=== PATIENT | male | born 1965 ===

== ENCOUNTER 2017-12-17 13:52 | Inpatient (IN) ==
[2017-12-17] MEDS ORDERED: VANCOMYCIN INJ 1,000 MG in SODIUM CHLORIDE 0.9% 250 ML IV STA ×2 (14:14→14:34)
[2017-12-17] MEDS ORDERED: VANCOMYCIN 1,000 MG VIAL ONE (14:35)
[2017-12-17 14:46] LABS: Basophils % 0.3 % (0.0-0.8); Eosinophils # 0.1 10*3/uL (0.0-0.87); Eosinophils % 0.4 % (0.00-10.9); Hematocrit 38.7 VOL% (42.0-52.0); Hemoglobin 12.8 GM/DL (14.0-18.0); Immature Granulocytes % 0.3 %; Immature Granulocytes Absolute 0.04 #; Lymphocytes # 0.9 10*3/uL (1.4-4.0); Lymphocytes % 7.7 % (21.2-54.2); Mean Corpuscular HGB Conc 33.1 GM/DL (32-36); Mean Corpuscular Hemoglobin 28 PG (27-34); Mean Corpuscular Volume 84.5 FL (87-102); Mean Platelet Volume 10.2 FL (9.6-12.0); Monocytes # 1.1 10*3/uL (0.11-0.8); Monocytes % 9.4 % (1.7-12.7); Neutrophils # 9.6 10*3/uL (1.4-7.4); Neutrophils % 81.9 % (38.7-73.9); Platelet Count 226 T/CUMM (130-400); Red Blood Count 4.58 MC/CUMM (3.8-5.5); White Blood Count 11.8 T/CUMM (4-12)
[2017-12-17 14:50] LABS: Apearance,Urine CLEAR (Clear); Bacteria,Urine Occasional /HPF (Few); Bilirubin,Urine Negative (Negative); Blood, Urine Small mg/dL (Negative); Glucose,Urine (UA) 50 mg/dL (Negative); Hyaline Casts,Urine 2 /LPF (0-3); Ketones,Urine Negative (Negative); Mucus,Urine Occasional /LPF (Occasional); Nitrite,Urine Negative (Negative); Protein,Urine 100 MG/DL; RBC,Urine <1 /HPF (0-4); Urine Color Yellow (Yellow); Urine Specific Gravity 1.008 (1.001-1.035); Urine Urobilinogen < 2.0 EU/DL (0.2-1.0); WBC,Urine <1 /HPF (0-6)
[2017-12-17 14:59] LABS: Total Cells Counted 0
[2017-12-17 15:00] LABS: Bilirubin,Total 0.5 MG/DL (0.2-1.0); Calcium 7.6 MG/DL (8.5-10.1); Lactic Acid 0.7 MMOL/L (0.4-2.0); Osmolality,Calculated 281.1 MOS/KG (273-304); Potassium 4.3 MMOL/L (3.5-5.1); Total Protein 7.5 G/DL (6.4-8.3)
[2017-12-17 15:58] LABS: Sedimentation Rate-Westergren 61 MM/HR (0-15)
[2017-12-17] MEDS ORDERED: GLUCAGON 1 MG VIAL IM PRN ×2 (16:11)
[2017-12-17] MEDS ORDERED: DEXTROSE 50% 25 GM/50 ML VIAL IV PRN ×2 (16:11)
[2017-12-17] MEDS ORDERED: ONDANSETRON 4 MG/2 ML VIAL IV PRN (16:11)
[2017-12-17] MEDS: INSULIN REGULAR 100 UNIT/ML SUBCUT SCH ×2 (18:13→21:32)
[2017-12-17] MEDS: IBUPROFEN 400 MG TABLET PO PRN (21:32)
[2017-12-18 05:23] LABS: Basophils % 0.2 % (0.0-0.8); Eosinophils # 0.2 10*3/uL (0.0-0.87); Eosinophils % 1.8 % (0.00-10.9); Hematocrit 37.9 VOL% (42.0-52.0); Hemoglobin 12.3 GM/DL (14.0-18.0); Immature Granulocytes % 0.3 %; Immature Granulocytes Absolute 0.03 #; Lymphocytes # 1.5 10*3/uL (1.4-4.0); Mean Corpuscular HGB Conc 32.5 GM/DL (32-36); Mean Corpuscular Hemoglobin 28 PG (27-34); Mean Corpuscular Volume 86.1 FL (87-102); Mean Platelet Volume 10.5 FL (9.6-12.0); Monocytes # 1.3 10*3/uL (0.11-0.8); Monocytes % 14.2 % (1.7-12.7); Neutrophils % 66.5 % (38.7-73.9); Platelet Count 220 T/CUMM (130-400); Red Cell Distribution Width 14.2 % (9.3-17.3); White Blood Count 9.1 T/CUMM (4-12)
[2017-12-18 06:01] LABS: Albumin 2.7 G/DL (3.4-5.0); Bilirubin,Total 1.1 MG/DL (0.2-1.0); Calcium 7.5 MG/DL (8.5-10.1); Osmolality,Calculated 287.3 MOS/KG (273-304); Potassium 4.4 MMOL/L (3.5-5.1)
[2017-12-18] MEDS: INSULIN REGULAR 100 UNIT/ML SUBCUT SCH ×4 (07:18→20:38)
[2017-12-18] MEDS: POTASSIUM CHLORIDE 10 MEQ TABLET PO SCH (08:50)
[2017-12-18] MEDS: FUROSEMIDE 40 MG TABLET PO SCH (08:50)
[2017-12-18] MEDS: ASPIRIN EC 81 MG TABLET PO SCH (08:50)
[2017-12-18] MEDS: SIMVASTATIN 20 MG TABLET PO SCH (08:51)
[2017-12-18] MEDS: amLODIPine 10 MG TABLET PO SCH (08:52)
[2017-12-18] MEDS: LISINOPRIL 20 MG TABLET PO SCH (08:52)
[2017-12-18] MEDS: PANTOPRAZOLE 40 MG TABLET PO SCH (08:52)
[2017-12-18] MEDS: VANCOMYCIN INJ 2,000 MG in SODIUM CHLORIDE 0.9% 500 ML IV SCH (09:00)
[2017-12-18] MEDS ORDERED: BUPIVACAINE 0.5% 50 ML VIAL ONE (09:41)
[2017-12-18] MEDS ORDERED: PROPOFOL 200 MG/20 ML VIAL IV ONE (11:02)
[2017-12-18] MEDS ORDERED: SEVOFLURANE 1 UNIT/15 MINUTE INH ONE (11:02)
[2017-12-18] MEDS ORDERED: ePHEDrine 50 MG/ML AMP ONE (11:03)
[2017-12-18] MEDS ORDERED: fentaNYL 100 MCG/2 ML VIAL ONE (11:03)
[2017-12-18] MEDS ORDERED: MIDAZOLAM 2 MG/2 ML VIAL ONE (11:03)
[2017-12-18] MEDS ORDERED: SODIUM CHLORIDE 0.9% 100 ML IV ONE (11:03)
[2017-12-18] MEDS: LEVOFLOXACIN INJ 750 MG in PREMIX 1 EACH IV SCH (14:04)
[2017-12-18] MEDS: IBUPROFEN 400 MG TABLET PO PRN (14:10)
[2017-12-18] MEDS: ACETAMINOPHEN 325 MG TABLET PO PRN (15:48)
[2017-12-19] MEDS: VANCOMYCIN INJ 2,000 MG in SODIUM CHLORIDE 0.9% 500 ML IV SCH ×2 (03:58→21:15)
[2017-12-19] MEDS: INSULIN REGULAR 100 UNIT/ML SUBCUT SCH ×4 (07:33→21:12)
[2017-12-19] MEDS: FUROSEMIDE 40 MG TABLET PO SCH (08:29)
[2017-12-19] MEDS: LISINOPRIL 20 MG TABLET PO SCH (08:29)
[2017-12-19] MEDS: amLODIPine 10 MG TABLET PO SCH (08:29)
[2017-12-19] MEDS: ACETAMINOPHEN 325 MG TABLET PO PRN (08:29)
[2017-12-19] MEDS: PANTOPRAZOLE 40 MG TABLET PO SCH (08:29)
[2017-12-19] MEDS: SIMVASTATIN 20 MG TABLET PO SCH (08:29)
[2017-12-19] MEDS: ASPIRIN EC 81 MG TABLET PO SCH (08:29)
[2017-12-19] MEDS: POTASSIUM CHLORIDE 10 MEQ TABLET PO SCH (08:29)
[2017-12-19 09:45] LABS: Basophils % 0.3 % (0.0-0.8); Eosinophils % 0.2 % (0.00-10.9); Hematocrit 36.8 VOL% (42.0-52.0); Hemoglobin 12.2 GM/DL (14.0-18.0); Immature Granulocytes % 0.4 %; Immature Granulocytes Absolute 0.04 #; Lymphocytes # 0.8 10*3/uL (1.4-4.0); Lymphocytes % 7.7 % (21.2-54.2); Mean Corpuscular HGB Conc 33.2 GM/DL (32-36); Mean Corpuscular Hemoglobin 28 PG (27-34); Mean Corpuscular Volume 84.6 FL (87-102); Mean Platelet Volume 10.3 FL (9.6-12.0); Monocytes # 0.7 10*3/uL (0.11-0.8); Monocytes % 7.2 % (1.7-12.7); Neutrophils # 8.7 10*3/uL (1.4-7.4); Neutrophils % 84.2 % (38.7-73.9); Platelet Count 226 T/CUMM (130-400); Red Blood Count 4.35 MC/CUMM (3.8-5.5); White Blood Count 10.3 T/CUMM (4-12)
[2017-12-19 10:18] LABS: Calcium 7.2 MG/DL (8.5-10.1); Potassium 4.7 MMOL/L (3.5-5.1)
[2017-12-19] MEDS: SODIUM HYPOCHLORITE 0.25% IRRIG 473 ML BOTTLE TOP SCH (11:41)
[2017-12-19] MEDS: LEVOFLOXACIN INJ 750 MG in PREMIX 1 EACH IV SCH (13:07)
[2017-12-20 04:08] LABS: Basophils % 0.4 % (0.0-0.8); Eosinophils # 0.2 10*3/uL (0.0-0.87); Hematocrit 35.1 VOL% (42.0-52.0); Hemoglobin 11.7 GM/DL (14.0-18.0); Immature Granulocytes % 0.2 %; Immature Granulocytes Absolute 0.02 #; Lymphocytes # 1.3 10*3/uL (1.4-4.0); Lymphocytes % 15.6 % (21.2-54.2); Mean Corpuscular HGB Conc 33.3 GM/DL (32-36); Mean Corpuscular Hemoglobin 28 PG (27-34); Mean Platelet Volume 10.3 FL (9.6-12.0); Monocytes # 1.3 10*3/uL (0.11-0.8); Monocytes % 15.5 % (1.7-12.7); Neutrophils # 5.6 10*3/uL (1.4-7.4); Neutrophils % 66.3 % (38.7-73.9); Platelet Count 221 T/CUMM (130-400); Red Blood Count 4.18 MC/CUMM (3.8-5.5); Red Cell Distribution Width 14.1 % (9.3-17.3); White Blood Count 8.5 T/CUMM (4-12)
[2017-12-20 04:33] LABS: Calcium 7.5 MG/DL (8.5-10.1); Osmolality,Calculated 282.4 MOS/KG (273-304); Potassium 4.5 MMOL/L (3.5-5.1)
[2017-12-20] MEDS: INSULIN REGULAR 100 UNIT/ML SUBCUT SCH ×3 (08:03→15:38)
[2017-12-20] MEDS: POTASSIUM CHLORIDE 10 MEQ TABLET PO SCH (09:34)
[2017-12-20] MEDS: FUROSEMIDE 40 MG TABLET PO SCH (09:34)
[2017-12-20] MEDS: PANTOPRAZOLE 40 MG TABLET PO SCH (09:34)
[2017-12-20] MEDS: amLODIPine 10 MG TABLET PO SCH (09:34)
[2017-12-20] MEDS: ASPIRIN EC 81 MG TABLET PO SCH (09:34)
[2017-12-20] MEDS: LISINOPRIL 20 MG TABLET PO SCH (09:34)
[2017-12-20] MEDS: SIMVASTATIN 20 MG TABLET PO SCH (09:34)
[2017-12-20] MEDS: LEVOFLOXACIN INJ 750 MG in PREMIX 1 EACH IV SCH (13:14)
[2017-12-20] MEDS: VANCOMYCIN INJ 2,000 MG in SODIUM CHLORIDE 0.9% 500 ML IV SCH (15:36)
[2017-12-20] MEDS: ACETAMINOPHEN 325 MG TABLET PO PRN (15:44)
[2017-12-20] MEDS: SODIUM HYPOCHLORITE 0.25% IRRIG 473 ML BOTTLE TOP SCH (16:07)
[2017-12-20 16:27] VITALS: BP 106/71
[2017-12-21] MEDS ORDERED: ERGOCALCIFEROL 50,000 UNIT CAPSULE PO SCH (16:22)
== END 2017-12-20 17:02 | disposition home or self-care (01) | DRG 256 ==
LOC: N.ED 13:52 → N.EDINP 15:31 → SUATTDRO 15:31 → N.3E 17:03
PROVIDERS: ADMIT Internal Medicine; ATTEND Internal Medicine